=== PATIENT | female | born 1990 | race African-American/Black ===

== ENCOUNTER 2020-04-07 19:57 | Emergency (ER) | payer MEDICAID ==
[2020-04-07 20:06] VITALS: BP 123/75
[2020-04-07] MEDS ORDERED: METOCLOPRAMIDE HCL INJ/PF 10 MG/2 ML SDV IV ONE (20:20)
[2020-04-07] MEDS ORDERED: KETOROLAC TROMETHAMINE INJ/PF 30 MG/1 ML SDV IV ONE (20:20)
[2020-04-07] MEDS ORDERED: METHOCARBAMOL INJ/PF 1000 MG/10 ML SDV IV ONE (20:20)
[2020-04-07] MEDS ORDERED: NORMAL SALINE 1000 ML 1,000 ML IV ONE (20:20)
[2020-04-07] MEDS ORDERED: DIPHENHYDRAMINE HCL 50 MG/ML VIAL IV ONE (20:20)
--- NOTE | 2020-04-07 20:22 | ER Document Report ---
ED Headache - General Chief Complaint: Headache Stated Complaint: HEADACHE Time Seen by Provider: 04/07/20 20:02 Notes: Patient is a 29-year-old female that comes emergency department for chief complaint of a headache that started earlier at work. She states it started mild and then progressively worsened over the past couple of hours to now a throbbing headache where she has difficulty focusing. Pain is mainly on the left back part of her head and around the side of her head. She denies head injury, fever, focal numbness or weakness. She denies getting frequent headaches. She does report some tightness in her neck recently but has been really paying attention to it. She denies vomiting, nausea, visual changes, focal numbness or weakness. She takes no daily medications other than as needed inhaler, no other reported medical history other than asthma. Past Medical History - General Information source: Patient - Social History Smoking Status: Never Smoker Frequency of alcohol use: None Drug Abuse: None Lives with: Family Family History: Reviewed & Not Pertinent Patient has homicidal ideation: No - Immunizations Immunizations up to date: Yes Hx Diphtheria, Pertussis, Tetanus Vaccination: Yes Review of Systems - Review of Systems Constitutional: No symptoms reported EENT: No symptoms reported Cardiovascular: No symptoms reported Respiratory: No symptoms reported Gastrointestinal: No symptoms reported Genitourinary: No symptoms reported Female Genitourinary: No symptoms reported Musculoskeletal: No symptoms reported Skin: No symptoms reported Hematologic/Lymphatic: No symptoms reported Neurological/Psychological: See HPI Physical Exam - Vital signs Vitals: Temp Pulse Resp BP Pulse Ox 98.7 F 89 18 123/75 97 04/07/20 20:05 04/07/20 20:05 04/07/20 20:05 04/07/20 20:05 04/07/20 20:05 - Notes Notes: GENERAL: Alert, interacts well. No acute distress. HEAD: Normocephalic, atraumatic. EYES: Pupils equal, round, and reactive to light. Extraocular movements intact. ENT: Oral mucosa moist, tongue midline. Oropharynx unremarkable. Airway patent. Nares patent, sinuses non-tender, ear canals unremarkable, TM's intact. NECK: Full range of motion. Supple. Trachea midline. No lymphadenopathy. LUNGS: Clear to auscultation bilaterally, no wheezes, rales, or rhonchi. No respiratory distress. Non-tender chest wall. HEART: Regular rate and rhythm. No murmur EXTREMITIES: Moves all 4 extremities spontaneously. No edema, normal radial and dorsalis pedis pulses bilaterally. No cyanosis. BACK: Tender along the paracervical musculature on both sides but more noticeably on the right. Pain with lateral rotation of the neck but otherwise unremarkable. No cervical, thoracic, lumbar midline tenderness. No saddle anesthesia, normal distal neurovascular exam. Moves all extremities in full range of motion. NEUROLOGICAL: Alert and oriented x3. Normal speech. Cranial nerves II through XII grossly intact. Strength 5/5 in all extremities. PSYCH: Normal affect, normal mood. SKIN: Warm, dry, normal turgor. No rashes or lesions noted. Course - Re-evaluation Re-evalutation: Patient is well-appearing, she has tenderness along her paracervical muscles especially on the right, she has pain with lateral rotation of the head but no nuchal rigidity. No neurological deficits. Headache was not maximal at onset and was slowly progressive. Patient is not had any vomiting or fever. Clinical presentation is most suggestive of a tension headache with developing migraine. We will attempt symptom management first and reassess. Under evaluation patient is awake, states she feels great, headache is gone. Very low suspicion of intracranial emergency based on this. Patient was provided with symptom management, instructions, follow-up, and I discussed return precautions and primary care follow-up. Patient states appreciation and agreement. Stable and well-appearing at time of discharge. - Vital Signs Vital signs: Temp Pulse Resp BP Pulse Ox 98.7 F 89 18 123/75 97 04/07/20 20:05 04/07/20 20:05 04/07/20 20:05 04/07/20 20:05 04/07/20 20:05 Discharge - Discharge Clinical Impression: Headache Qualifiers: Headache type: unspecified Headache chronicity pattern: acute headache Intractability: not intractable Qualified Code(s): R51 - Headache Condition: Stable Disposition: HOME, SELF-CARE Additional Instructions: Your evaluation, symptoms, and resolution with treatment are very suggestive of a tension headache triggering a migraine. Recommend the prescribed muscle x-ray, massage and heat to your neck, [id number] anti-inflammatories. You can take the Fioricet as needed for headaches additionally. Follow-up with primary care for additional evaluation and management of migraines. Return if you worsen including returned or severe headache, vomiting, fever, or any other concerning or worsening symptoms. Prescriptions: Butalb/Acetaminophen/Caffeine [Fioricet (50-325-40 mg) Tablet] 1 tab PO Q4HP PRN #20 tab PRN Reason: Methocarbamol [Robaxin-750] 750 mg PO QID PRN #20 tablet PRN Reason: Forms: Return to Work
== END 2020-04-07 22:05 | disposition home or self-care (01) ==
LOC: ER 19:57
DX: R51 Headache (principal); J45.909 Unspecified asthma, uncomplicated
CPT/HCPCS: 99284; 96375; 96365; J1200; J2800; J1885; J2765; J7030